=== PATIENT | female | born 1950 | race Asian ===

== ENCOUNTER 2022-03-21 05:24 | Day surgery (SDC) | payer OTHER ==
[~2022-03-21] VITALS: Ht 160 cm; Wt 59.0 kg
[~2022-03-21 05:24] MED LIST: AMLODIPINE BESY10 MG PO; CINNAMON500 MG PO; FLAXSEED1000 MG PO; FOCUS FACTOR PO; HCTZ25 MG PO; IRON18 MG PO; LOPRESSOR25 MG PO; QUETIAPINE FUMA50 MG PO
[2022-03-22 07:33] LABS: BASOPHIL 0.1 % (0-2); EOSINOPHIL 0 % (0-7); HCT 32.1 % (37.0-47.0); HGB 10.4 g/dl (12.5-16.0); LYMPHOCYTE 15.9 % (15-48); MCH 27.2 pg (25.0-31.0); MCHC 32.4 g/dL (32.0-36.0); MCV 83.8 fL (78.0-100.0); MPV 8.8 fL (6.0-9.5); NEUTROPHIL 76.4 % (41-80); NRBC 0; PLT 370 K/uL (150-400); RBC 3.83 M/uL (4.20-5.40); RDW 15.5 % (11.5-14.0); WBC 20.7 K/uL (4.0-10.5)
[2022-03-22 07:56] LABS: BUN/CREAT RATIO (CALC) 18.7 RATIO; CREATININE 0.91 mg/dL (0.51-0.95); POTASSIUM 3.6 mmol/L (3.5-5.1)
[2022-03-22] MEDS ORDERED: OXYCODONE-ACET1 EAC1 PO (09:10)
[2022-03-22] MEDS ORDERED: XARELTO10 MG PO (09:10)
== END 2022-03-22 12:15 | disposition home health service (06) ==
LOC: FAS 05:24 → FMS 08:53 → FAS 03-22 12:15
PROVIDERS: Legal Medicine
DX: M17.0 Bilateral primary osteoarthritis of knee (principal); M25.761 Osteophyte, right knee; M67.261 Synovial hypertrophy, not elsewhere classified, right lower leg; I10 Essential (primary) hypertension; E78.5 Hyperlipidemia, unspecified; F32.A Depression, unspecified
CPT/HCPCS: 36415; 73560; 80048; 85025; 86850; 86900; 86901; 94010; 94760; 94762; 97110; 97162; 97165; 97530-GP; C1713; C1776; J0171; J0697; J1100; J1885; J2250; J2270; J2405; J2704; J2795; J3010; J7120